=== PATIENT | female | born 1945 | race Caucasian/White ===

== ENCOUNTER 2018-11-07 10:59 | Outpatient (CLI) | payer MEDICARE, BC | END 2018-11-07 11:00 | disposition home or self-care (01) | LOC: BICMAMMO 10:59 | PROVIDERS: ATTEND Obstetrics & Gynecology | DX: Z12.31 Encounter for screening mammogram for malignant neoplasm of breast (principal) | CPT/HCPCS: 77063; 77067 ==

== ENCOUNTER 2019-08-31 08:40 | Outpatient (CLI) | payer MEDICARE, BC ==
--- NOTE | 2019-08-31 10:14 | ULT ---
THYROID ULTRASOUND: HISTORY: Hyperparathyroidism. FINDINGS: Thyroid isthmus: 0.4 cm. Right thyroid lobe: 4.7 x 1.4 x 1.4 cm. Left thyroid lobe: 4.0 x 1.3 x 1.2 cm. Thyroid nodules: 1.0 x 0.5 x 1.1 cm solid nodule in the upper pole of the right thyroid lobe. 0.4 x 0 .4 x 0.5 solid nodule in the upper pole of the right thyroid lobe. Cystic lesion in the midpole of the left thyroid lobe measuring 0.5 x 0.4 x 0.6 cm. Cystic lesion in the lower pole of the left thyro id lobe measuring 0.3 x 0.3 x 0.4 cm. IMPRESSION: Solid nodules in the right thyroid lobe. TIRADS calculator score TR3. Followup imaging in one year. Transcribed Date/Time: 08/31/2019 10:25 AM
--- NOTE | 2019-08-31 11:20 | BD ---
BONE DENSITOMETRY USING DEXA: Date: 08/31/19 HISTORY: Osteoporosis. FINDINGS: BMD (gm/cm2) RIGHT HIP: Neck 0.600 T-Score: -2.2 Z-Score: -0.2 Total: 0.960 T-Score: -0.7 Z-Score: 1.1 LEFT HIP: Neck 0.550 T-Score: -2.7 Z-Score: -0.6 Total: 0.869 T-Score: -0.6 Z-Score: 1.2 IMPRESSION: Osteoporosis. POS: [facility]
== END 2019-08-31 08:41 | disposition home or self-care (01) ==
LOC: BICMAMMO 08:40
PROVIDERS: ATTEND Neurological Surgery
DX: M81.0 Age-related osteoporosis without current pathological fracture (principal); E21.3 Hyperparathyroidism, unspecified; E04.2 Nontoxic multinodular goiter
CPT/HCPCS: 76536; 77080

== ENCOUNTER 2022-11-22 12:39 | Emergency (ER) | payer MEDICARE, BC ==
[2022-11-22 13:10] LABS: #Lymphocytes 0.7 thou/uL (1.20-3.40); #Monocytes 0.1 thou/uL (0.11-0.59); #Neutrophils 5.2 thou/uL (1.40-6.50); %Eosinophils 0.2 % (0.0-10.0); %Lymphocytes 11.9 % (21.0-51.0); %Monocytes 1.6 % (0.0-10.0); %Neutrophils 86.3 % (42.0-75.0); Hemoglobin 10.2 g/dL (12.0-16.0); Mean Corpuscular Hemoglobin 22.7 pg (27.0-31.0); Mean Corpuscular Volume 75.8 fl (78.0-98.0); Platelet Count 155 10x3/uL (130-400); RBC Distribution Width 16.2 % (11.5-14.5); White Blood Cell (WBC) Count 6.1 10x3/uL (4.8-10.8)
[2022-11-22] MEDS ORDERED: Meclizine HCl 25 MG TAB ONE (13:26)
[2022-11-22] MEDS ORDERED: Aspirin 325 MG TAB ONE (13:26)
[2022-11-22 13:30] LABS: ALT (SGPT) 31 U/L (8-55); AST (SGOT) 27 U/L (5-34); Albumin 4.1 g/dL (3.4-4.8); Alkaline Phosphatase 44 U/L (40-110); Anion Gap 19 mmol/L (10-20); BUN (Urea Nitrogen) 10 mg/dL (9.8-20.1); Bilirubin, Total 0.4 mg/dL (0.2-1.2); Calc. Creatinine Clearance 0 mL/min (70-130); Calcium 9.6 mg/dL (7.8-10.44); Carbon Dioxide 20 mmol/L (23-31); Chloride 107 mmol/L (98-107); Estimated GFR 78; Globulin 2.5 g/dL (2.4-3.5); Glucose 190 mg/dL (83-110); Potassium 3.7 mmol/L (3.5-5.1); Protein, Total 6.6 g/dL (5.8-8.1); Sodium 142 mmol/L (136-145)
[2022-11-22 13:55] LABS: Hypochromia SLIGHT = 6-15 cells (100X) (0-5/hpf); MDiff Complete? YES; Microcytosis SLIGHT = 6-15 cells (100X) (0-5/hpf); Polychromasia SLIGHT = 2-3 cells (100X) (0-2/hpf)
== END 2022-11-22 14:00 | disposition home or self-care (01) ==
LOC: ERS 12:39
DX: R07.9 Chest pain, unspecified (principal); R42 Dizziness and giddiness
CPT/HCPCS: 36415; 71045; 80053; 84484; 85025; 93005

== ENCOUNTER 2022-12-26 18:02 | Inpatient (IN) | payer MEDICARE, BC ==
[2022-12-26] MEDS ORDERED: Cefepime 2 GM VIAL ONE (18:46)
[2022-12-26] MEDS ORDERED: Acetaminophen 650 MG Suppository ONE (18:46)
[2022-12-26 18:57] LABS: Actual Bicarbonate (HCO3a) 25.4 mEq/L (22-28); Analyzer IN Cardio ER; Base Excess (BEa) 1.6 mEq/L (-2.0 to +3.0); Carboxyhemoglobin (COHb) 0.7 gm% (0.0-3.0); Hemoglobin (Hb) 13.3 g/dL (12.0-16.0); O2 Tension (PaO2), arterial 65.4 mmHg (> 70.0); pH, Arterial 7.45 (7.35-7.45)
[2022-12-26 18:59] LABS: Calcium, Ionized (arterial) 1.63 mmol/L (1.12-1.30); Puncture Site RRA
[2022-12-26 19:33] LABS: Mean Corpuscular Hemoglobin 23.6 pg (27.0-31.0); Mean Corpuscular Volume 76.1 fl (78.0-98.0); Mean Platelet Volume 9.5 fL (7.4-10.4); Platelet Count 152 10x3/uL (130-400); RBC Distribution Width 17.5 % (11.5-14.5); Red Blood Cell (RBC) Count 5.52 mill/uL (4.20-5.40); White Blood Cell (WBC) Count 35.8 10x3/uL (4.8-10.8)
[2022-12-26 19:40] LABS: Bilirubin Negative (Negative); Blood, Urine Negative (Negative); Clarity Clear (Clear); Glucose, Urine (Dipstick) Normal (Negative); Ketone, Urine Negative (Negative); Leukocyte Negative Leu/uL (Negative); Nitrite Negative (Negative); Protein, Urine (Dipstick) Negative (Neg-Trace); Urobilinogen Normal mg/dL (Less than 2)
[2022-12-26 19:40] LABS: ALT (SGPT) 35 U/L (8-55); AST (SGOT) 30 U/L (5-34); Albumin 4.3 g/dL (3.4-4.8); Alkaline Phosphatase 63 U/L (40-110); Anion Gap 22 mmol/L (10-20); BUN (Urea Nitrogen) 20 mg/dL (9.8-20.1); Bilirubin, Total 0.4 mg/dL (0.2-1.2); Calc. Creatinine Clearance 0 mL/min (70-130); Carbon Dioxide 24 mmol/L (23-31); Chloride 97 mmol/L (98-107); Estimated GFR 50; Globulin 2.7 g/dL (2.4-3.5); Glucose 205 mg/dL (83-110); Potassium 3.6 mmol/L (3.5-5.1); Sodium 139 mmol/L (136-145)
[2022-12-26 19:41] LABS: SARS-CoV-2 NAA Rapid Test DETECTED (NotDetected)
[2022-12-26 19:50] LABS: Hypochromia SLIGHT = 6-15 cells (100X) (0-5/hpf); MDiff Complete? YES; Microcytosis SLIGHT = 6-15 cells (100X) (0-5/hpf); Stomatocytes SLIGHT = 2-5 cells (100X) (0-1/hpf); Tear Drops SLIGHT = 2-5 cells (100X) (0-1/hpf); Vacuoles SLIGHT
[2022-12-26 19:51] LABS: Calcium 13.4 mg/dL (7.8-10.44)
[2022-12-26 20:03] LABS: CKMB 0.9 ng/mL (0-6.6)
[2022-12-26] MEDS ORDERED: Dexamethasone 4 MG TAB ONE (20:07)
[2022-12-26] MEDS ORDERED: Dexamethasone 4 mg/ml Vial ONE (20:08)
[2022-12-26] MEDS ORDERED: Ondansetron ODT 4 MG TAB PO PRN (21:36)
[2022-12-26] MEDS ORDERED: Ondansetron PF 4 MG/2 ML Vial IVP PRN (21:36)
[2022-12-26] MEDS ORDERED: Acetaminophen 650 MG Suppository PR PRN ×2 (21:36)
[2022-12-26] MEDS ORDERED: Acetaminophen 325 MG TAB PO PRN (21:36)
[2022-12-26] MEDS ORDERED: Benzonatate 100 MG CAP PO PRN (21:36)
[2022-12-26] MEDS ORDERED: Dexamethasone 6 MG in Sodium Chloride 0.9% 50 ML IVPB SCH (21:45)
[2022-12-26 23:12] LABS: Lactic Acid 5.3 mmol/L (0.5-2.2)
[2022-12-27 01:23] VITALS: BMI 28.1
[2022-12-27] MEDS ORDERED: Piperacillin/Tazobactam 3.375 GM in Sodium Chloride 0.9% 100 ML IVPB SCH (02:00)
[2022-12-27] MEDS ORDERED: Sodium Chloride 0.9% 500 ML IV SCH (02:15)
[2022-12-27 02:29] LABS: Mean Corpuscular HGB CONC 30.3 g/dL (32.0-36.0); Mean Corpuscular Hemoglobin 23.4 pg (27.0-31.0); Mean Platelet Volume 8.6 fL (7.4-10.4); Platelet Count 133 10x3/uL (130-400); RBC Distribution Width 17.6 % (11.5-14.5); Red Blood Cell (RBC) Count 4.72 mill/uL (4.20-5.40); White Blood Cell (WBC) Count 32.5 10x3/uL (4.8-10.8)
[2022-12-27] MEDS ORDERED: Linezolid 600 MG in Premix Bag 1 BAG IVPB SCH (03:00)
[2022-12-27 03:07] LABS: Anion Gap 16 mmol/L (10-20); BUN (Urea Nitrogen) 20 mg/dL (9.8-20.1); Band 29 % (5-11); Calc. Creatinine Clearance 49 mL/min (70-130); Calcium 11.9 mg/dL (7.8-10.44); Carbon Dioxide 25 mmol/L (23-31); Chloride 105 mmol/L (98-107); Estimated GFR 53; Glucose 191 mg/dL (83-110); Hypochromia SLIGHT = 6-15 cells (100X) (0-5/hpf); MDiff Complete? YES; Macrocytosis SLIGHT = 6-15 cells (100X) (0-5/hpf); Neutrophil 71 % (42-75); Platelet Morphology Comment Appears Adequate; Potassium 4.2 mmol/L (3.5-5.1); Sodium 142 mmol/L (136-145)
[2022-12-27] MEDS: Sodium Chloride 0.9% 1,000 ML IV SCH ×4 (03:15→21:43)
[2022-12-27] MEDS: Piperacillin/Tazobactam 3.375 GM in Sodium Chloride 0.9% 100 ML IVPB SCH ×3 (06:25→21:42)
[2022-12-27 07:53] LABS: Lactic Acid 2.7 mmol/L (0.5-2.2)
[2022-12-27] MEDS ORDERED: FLU VACC QS2022-23(65YR UP)/PF 240 MCG/0.7 ML SYRINGE IM ONE (09:00)
[2022-12-27] MEDS ORDERED: Dexamethasone 6 MG in Sodium Chloride 0.9% 50 ML IVPB SCH (09:00)
[2022-12-27] MEDS ORDERED: Pantoprazole 40 MG VIAL IVP SCH (09:00)
[2022-12-27] MEDS ORDERED: Cholecalciferol (Vitamin D3) 400 UNITS TAB PO SCH (09:00)
[2022-12-27] MEDS: Ascorbic Acid 500 mg Chewable Tablet PO SCH (09:15)
[2022-12-27] MEDS: Aggrenox 200-25mg CAP PO SCH ×2 (09:16→21:43)
[2022-12-27] MEDS: Gabapentin 100 MG CAP PO SCH ×2 (09:16→21:42)
[2022-12-27] MEDS: Zinc Sulfate 220 MG CAP PO SCH (09:21)
[2022-12-27] MEDS ORDERED: Fioricet 325/50/40 mg Tablet PO PRN (17:40)
[2022-12-27] MEDS: HYDROcodone/Acetaminophen 5/325 mg Tablet PO PRN ×2 (18:13→22:21)
[2022-12-27] MEDS: Latanoprost 0.005% Ophth Soln 2.5 ml Bottle EA EYE SCH (21:41)
[2022-12-27] MEDS: Linezolid 600 MG TAB PO SCH (21:41)
[2022-12-28] MEDS: HYDROcodone/Acetaminophen 5/325 mg Tablet PO PRN ×3 (02:33→10:48)
[2022-12-28 05:12] LABS: #Lymphocytes 1.3 thou/uL (1.20-3.40); #Monocytes 0.5 thou/uL (0.11-0.59); #Neutrophils 8.4 thou/uL (1.40-6.50); %Basophils 0.1 % (0.0-1.0); %Eosinophils 0.2 % (0.0-10.0); %Lymphocytes 13.2 % (21.0-51.0); %Monocytes 4.4 % (0.0-10.0); %Neutrophils 82.2 % (42.0-75.0); Hemoglobin 8.4 g/dL (12.0-16.0); Mean Corpuscular HGB CONC 30.1 g/dL (32.0-36.0); Mean Corpuscular Hemoglobin 23.3 pg (27.0-31.0); Mean Corpuscular Volume 77.3 fl (78.0-98.0); Mean Platelet Volume 8.8 fL (7.4-10.4); Platelet Count 106 10x3/uL (130-400); RBC Distribution Width 16.9 % (11.5-14.5); Red Blood Cell (RBC) Count 3.59 mill/uL (4.20-5.40); White Blood Cell (WBC) Count 10.2 10x3/uL (4.8-10.8)
[2022-12-28] MEDS: Sodium Chloride 0.9% 1,000 ML IV SCH ×4 (05:22→22:27)
[2022-12-28] MEDS: Piperacillin/Tazobactam 3.375 GM in Sodium Chloride 0.9% 100 ML IVPB SCH ×3 (05:22→22:26)
[2022-12-28 05:27] LABS: Anion Gap 11 mmol/L (10-20); BUN (Urea Nitrogen) 22 mg/dL (9.8-20.1); Calc. Creatinine Clearance 51 mL/min (70-130); Calcium 10.2 mg/dL (7.8-10.44); Carbon Dioxide 25 mmol/L (23-31); Chloride 110 mmol/L (98-107); Estimated GFR 55; Glucose 152 mg/dL (83-110); Potassium 3.5 mmol/L (3.5-5.1); Sodium 142 mmol/L (136-145)
[2022-12-28] MEDS: Zinc Sulfate 220 MG CAP PO SCH (09:06)
[2022-12-28] MEDS: Gabapentin 100 MG CAP PO SCH ×2 (09:06→22:26)
[2022-12-28] MEDS: Vitamin E 400 UNITS CAP PO SCH (09:06)
[2022-12-28] MEDS: Ascorbic Acid 500 mg Chewable Tablet PO SCH (09:07)
[2022-12-28] MEDS: Linezolid 600 MG TAB PO SCH ×2 (09:07→22:26)
[2022-12-28] MEDS: Aggrenox 200-25mg CAP PO SCH ×2 (09:08→22:26)
[2022-12-28] MEDS: Latanoprost 0.005% Ophth Soln 2.5 ml Bottle EA EYE SCH ×2 (09:08→22:27)
[2022-12-28] MEDS: Dexamethasone 4 mg/ml Vial SLOW IVP SCH (09:08)
[2022-12-28] MEDS ORDERED: Magnevist 469MG/ML 20 ML VIAL ONE (09:47)
[2022-12-28] MEDS ORDERED: HYDROcodone/Acetaminophen 7.5/325 mg Tablet PO PRN (12:40)
[2022-12-28] MEDS ORDERED: Ketorolac Tromethamine 30 MG/ML VIAL IVP SCH (12:45)
[2022-12-28] MEDS: Ketorolac Tromethamine 30 MG/ML VIAL IVP SCH ×2 (18:02→22:26)
[2022-12-28] MEDS: HYDROcodone/Acetaminophen 7.5/325 mg Tablet PO PRN (20:14)
[2022-12-29] MEDS: HYDROcodone/Acetaminophen 7.5/325 mg Tablet PO PRN ×3 (01:49→13:11)
[2022-12-29] MEDS: Sodium Chloride 0.9% 1,000 ML IV SCH ×2 (03:05→11:27)
[2022-12-29 04:46] LABS: #Lymphocytes 1.2 thou/uL (1.20-3.40); #Monocytes 0.3 thou/uL (0.11-0.59); #Neutrophils 5.3 thou/uL (1.40-6.50); %Eosinophils 0.4 % (0.0-10.0); %Lymphocytes 17.4 % (21.0-51.0); %Monocytes 4.2 % (0.0-10.0); Hemoglobin 8.8 g/dL (12.0-16.0); Mean Corpuscular HGB CONC 30.7 g/dL (32.0-36.0); Mean Corpuscular Hemoglobin 23.6 pg (27.0-31.0); Mean Corpuscular Volume 76.9 fl (78.0-98.0); Mean Platelet Volume 8.3 fL (7.4-10.4); Platelet Count 121 10x3/uL (130-400); RBC Distribution Width 16.7 % (11.5-14.5); Red Blood Cell (RBC) Count 3.72 mill/uL (4.20-5.40); White Blood Cell (WBC) Count 6.8 10x3/uL (4.8-10.8)
[2022-12-29 05:10] LABS: Anion Gap 11 mmol/L (10-20); BUN (Urea Nitrogen) 19 mg/dL (9.8-20.1); Calc. Creatinine Clearance 61 mL/min (70-130); Calcium 9.9 mg/dL (7.8-10.44); Carbon Dioxide 23 mmol/L (23-31); Chloride 111 mmol/L (98-107); Estimated GFR 68; Glucose 106 mg/dL (83-110); Potassium 3.2 mmol/L (3.5-5.1); Sodium 142 mmol/L (136-145)
[2022-12-29] MEDS: Ketorolac Tromethamine 30 MG/ML VIAL IVP SCH ×3 (05:54→18:03)
[2022-12-29] MEDS: Piperacillin/Tazobactam 3.375 GM in Sodium Chloride 0.9% 100 ML IVPB SCH (05:55)
[2022-12-29] MEDS: Vitamin E 400 UNITS CAP PO SCH (09:27)
[2022-12-29] MEDS: Aggrenox 200-25mg CAP PO SCH ×2 (09:27→20:59)
[2022-12-29] MEDS: Ascorbic Acid 500 mg Chewable Tablet PO SCH (09:28)
[2022-12-29] MEDS: Linezolid 600 MG TAB PO SCH ×2 (09:30→20:57)
[2022-12-29] MEDS: Zinc Sulfate 220 MG CAP PO SCH (09:30)
[2022-12-29] MEDS: Gabapentin 100 MG CAP PO SCH (09:30)
[2022-12-29] MEDS: Dexamethasone 4 mg/ml Vial SLOW IVP SCH (09:31)
[2022-12-29] MEDS: Latanoprost 0.005% Ophth Soln 2.5 ml Bottle EA EYE SCH ×2 (09:39→20:59)
[2022-12-29] MEDS ORDERED: Acetaminophen/Codeine 30-300mg Tablet PO PRN (10:06)
[2022-12-29] MEDS ORDERED: Calcium Carbonate 500 MG ChewTAB PO PRN (10:06)
[2022-12-29] MEDS ORDERED: predniSONE 5 MG TAB PO SCH (10:45)
[2022-12-29] MEDS ORDERED: Polyethylene Glycol 3350 17 GM Packet PO SCH (10:45)
[2022-12-29] MEDS: Morphine 4 MG/ML VIAL SLOW IVP PRN ×3 (11:23→20:58)
[2022-12-29] MEDS: Gabapentin 300 MG CAP PO SCH (20:58)
[2022-12-30] MEDS: Ketorolac Tromethamine 30 MG/ML VIAL IVP SCH ×5 (00:49→22:58)
[2022-12-30 04:59] LABS: Anisocytosis SLIGHT = 6-15 cells (100X) (0-5/hpf); Eosinophils 1 % (0-10); Hemoglobin 9.3 g/dL (12.0-16.0); Hypochromia SLIGHT = 6-15 cells (100X) (0-5/hpf); Lymphocytes 14 % (21-51); MDiff Complete? YES; Mean Corpuscular HGB CONC 30.5 g/dL (32.0-36.0); Mean Corpuscular Hemoglobin 23.2 pg (27.0-31.0); Mean Corpuscular Volume 76.1 fl (78.0-98.0); Mean Platelet Volume 8.4 fL (7.4-10.4); Microcytosis SLIGHT = 6-15 cells (100X) (0-5/hpf); Monocytes 6 % (0-10); Neutrophil 78 % (42-75); Platelet Count 126 10x3/uL (130-400); Platelet Morphology Comment Appears Decreased; Polychromasia SLIGHT = 2-3 cells (100X) (0-2/hpf); RBC Distribution Width 16.3 % (11.5-14.5); Reactive Lymphocytes 1 % (0-10); Red Blood Cell (RBC) Count 4.03 mill/uL (4.20-5.40); Target Cells SLIGHT = 2-5 cells (100X) (0-1/hpf); Tear Drops SLIGHT = 2-5 cells (100X) (0-1/hpf); White Blood Cell (WBC) Count 5.8 10x3/uL (4.8-10.8)
[2022-12-30] MEDS: Morphine 4 MG/ML VIAL SLOW IVP PRN ×3 (08:10→17:51)
[2022-12-30] MEDS: Polyethylene Glycol 3350 17 GM Packet PO SCH (08:11)
[2022-12-30] MEDS: Cholecalciferol 1,000 UNITS (25 MCG) TAB PO SCH (08:13)
[2022-12-30] MEDS: Linezolid 600 MG TAB PO SCH ×2 (08:13→20:07)
[2022-12-30] MEDS: Zinc Sulfate 220 MG CAP PO SCH (08:13)
[2022-12-30] MEDS: predniSONE 5 MG TAB PO SCH (08:13)
[2022-12-30] MEDS: Aggrenox 200-25mg CAP PO SCH ×2 (08:14→20:08)
[2022-12-30] MEDS: Gabapentin 300 MG CAP PO SCH ×2 (08:14→20:07)
[2022-12-30] MEDS: Ascorbic Acid 500 mg Chewable Tablet PO SCH (08:14)
[2022-12-30] MEDS: Latanoprost 0.005% Ophth Soln 2.5 ml Bottle EA EYE SCH ×2 (08:15→20:08)
[2022-12-30] MEDS: HYDROcodone/Acetaminophen 7.5/325 mg Tablet PO PRN ×2 (11:07→17:53)
[2022-12-30] MEDS: Vitamin E 400 UNITS CAP PO SCH (11:07)
[2022-12-30] MEDS: Sodium Chloride 0.9% 1,000 ML IV SCH (13:15)
[2022-12-30] MEDS: HYDROcodone/Acetaminophen 10/325 mg Tablet PO PRN (22:58)
[2022-12-31] MEDS: Morphine 4 MG/ML VIAL SLOW IVP PRN ×5 (01:17→23:25)
[2022-12-31] MEDS: Ketorolac Tromethamine 30 MG/ML VIAL IVP SCH ×4 (06:06→23:25)
[2022-12-31] MEDS: HYDROcodone/Acetaminophen 10/325 mg Tablet PO PRN ×2 (09:16→15:34)
[2022-12-31] MEDS: Zinc Sulfate 220 MG CAP PO SCH (09:17)
[2022-12-31] MEDS: Gabapentin 300 MG CAP PO SCH ×3 (09:17→20:24)
[2022-12-31] MEDS: Vitamin E 400 UNITS CAP PO SCH (09:17)
[2022-12-31] MEDS: predniSONE 5 MG TAB PO SCH (09:17)
[2022-12-31] MEDS: Polyethylene Glycol 3350 17 GM Packet PO SCH (09:17)
[2022-12-31] MEDS: Cholecalciferol 1,000 UNITS (25 MCG) TAB PO SCH (09:19)
[2022-12-31] MEDS: Linezolid 600 MG TAB PO SCH ×2 (09:19→20:24)
[2022-12-31] MEDS: Ascorbic Acid 500 mg Chewable Tablet PO SCH (09:19)
[2022-12-31] MEDS: Latanoprost 0.005% Ophth Soln 2.5 ml Bottle EA EYE SCH ×2 (09:21→20:24)
[2022-12-31] MEDS: Sodium Chloride 0.9% 1,000 ML IV SCH (09:21)
[2022-12-31] MEDS: Aggrenox 200-25mg CAP PO SCH ×2 (11:31→20:24)
[2022-12-31] MEDS: tiZANidine HCl 4 MG TAB PO PRN (15:39)
[2023-01-01] MEDS: Morphine 4 MG/ML VIAL SLOW IVP PRN ×5 (03:15→23:31)
[2023-01-01] MEDS: Ketorolac Tromethamine 30 MG/ML VIAL IVP SCH ×4 (05:50→23:31)
[2023-01-01] MEDS: Zinc Sulfate 220 MG CAP PO SCH (09:10)
[2023-01-01] MEDS: Gabapentin 300 MG CAP PO SCH ×3 (09:10→19:27)
[2023-01-01] MEDS: predniSONE 5 MG TAB PO SCH (09:11)
[2023-01-01] MEDS: Linezolid 600 MG TAB PO SCH ×2 (09:19→19:27)
[2023-01-01] MEDS: tiZANidine HCl 4 MG TAB PO PRN ×2 (09:21→19:27)
[2023-01-01] MEDS: Aggrenox 200-25mg CAP PO SCH ×2 (09:21→19:27)
[2023-01-01] MEDS: Vitamin E 400 UNITS CAP PO SCH (09:22)
[2023-01-01] MEDS: Cholecalciferol 1,000 UNITS (25 MCG) TAB PO SCH (09:22)
[2023-01-01] MEDS: Ascorbic Acid 500 mg Chewable Tablet PO SCH (09:23)
[2023-01-01] MEDS ORDERED: hydrALAZINE 25 MG TAB PO PRN (09:39)
[2023-01-01] MEDS: Polyethylene Glycol 3350 17 GM Packet PO SCH (10:29)
[2023-01-01] MEDS: Latanoprost 0.005% Ophth Soln 2.5 ml Bottle EA EYE SCH ×2 (13:00→19:27)
[2023-01-01] MEDS: HYDROcodone/Acetaminophen 10/325 mg Tablet PO PRN (21:34)
[2023-01-02 05:21] LABS: Bacteria/HPF None Seen HPF (None Seen); Bilirubin Negative (Negative); Blood, Urine Negative (Negative); CAUTI Indications for Culture Dysuria,urgency,freq; Clarity Clear (Clear); Glucose, Urine (Dipstick) Normal (Negative); Ketone, Urine Negative (Negative); Leukocyte Negative Leu/uL (Negative); Nitrite Negative (Negative); Protein, Urine (Dipstick) Negative (Neg-Trace); RBC/HPF 0-3 HPF (0-3); Squamous Epithelial None Seen HPF (0-3); Urobilinogen Normal mg/dL (Less than 2); WBC/HPF 0-3 HPF (0-3); Yeast-Budding 1+ HPF (None Seen); pH, Urine 7.5 (5.0-9.0)
[2023-01-02] MEDS: HYDROcodone/Acetaminophen 10/325 mg Tablet PO PRN ×3 (05:24→21:00)
[2023-01-02] MEDS: Ketorolac Tromethamine 30 MG/ML VIAL IVP SCH ×3 (05:24→17:50)
[2023-01-02 05:25] LABS: Urine Culture Reflex No No
[2023-01-02 05:26] LABS: Anion Gap 15 mmol/L (10-20); BUN (Urea Nitrogen) 21 mg/dL (9.8-20.1); Calc. Creatinine Clearance 69 mL/min (70-130); Calcium 9.9 mg/dL (7.8-10.44); Carbon Dioxide 25 mmol/L (23-31); Chloride 106 mmol/L (98-107); Estimated GFR 80; Glucose 109 mg/dL (83-110); Potassium 3.5 mmol/L (3.5-5.1); Sodium 142 mmol/L (136-145)
[2023-01-02] MEDS: tiZANidine HCl 4 MG TAB PO PRN ×3 (08:15→23:21)
[2023-01-02] MEDS: Ascorbic Acid 500 mg Chewable Tablet PO SCH (08:16)
[2023-01-02] MEDS: Gabapentin 300 MG CAP PO SCH ×3 (08:17→21:00)
[2023-01-02] MEDS: Cholecalciferol 1,000 UNITS (25 MCG) TAB PO SCH (08:17)
[2023-01-02] MEDS: Linezolid 600 MG TAB PO SCH ×2 (08:19→21:00)
[2023-01-02] MEDS: Polyethylene Glycol 3350 17 GM Packet PO SCH (08:21)
[2023-01-02] MEDS: predniSONE 5 MG TAB PO SCH (08:21)
[2023-01-02] MEDS: Latanoprost 0.005% Ophth Soln 2.5 ml Bottle EA EYE SCH ×2 (08:22→21:03)
[2023-01-02] MEDS: Vitamin E 400 UNITS CAP PO SCH (08:22)
[2023-01-02] MEDS: Zinc Sulfate 220 MG CAP PO SCH (08:22)
[2023-01-02] MEDS: Aggrenox 200-25mg CAP PO SCH ×2 (08:25→21:00)
[2023-01-02] MEDS: Amlodipine 5 MG TAB PO SCH (11:40)
[2023-01-03] MEDS: HYDROcodone/Acetaminophen 10/325 mg Tablet PO PRN ×4 (04:05→22:41)
[2023-01-03] MEDS: tiZANidine HCl 4 MG TAB PO PRN ×3 (04:05→22:43)
[2023-01-03] MEDS: Morphine 4 MG/ML VIAL SLOW IVP PRN ×2 (05:05→11:59)
[2023-01-03] MEDS: Gabapentin 300 MG CAP PO SCH ×3 (09:43→20:29)
[2023-01-03] MEDS: Polyethylene Glycol 3350 17 GM Packet PO SCH (09:43)
[2023-01-03] MEDS: Vitamin E 400 UNITS CAP PO SCH (09:44)
[2023-01-03] MEDS: predniSONE 5 MG TAB PO SCH (09:45)
[2023-01-03] MEDS: Cholecalciferol 1,000 UNITS (25 MCG) TAB PO SCH (09:45)
[2023-01-03] MEDS: Ascorbic Acid 500 mg Chewable Tablet PO SCH (09:45)
[2023-01-03] MEDS: Amlodipine 5 MG TAB PO SCH (09:45)
[2023-01-03] MEDS: Zinc Sulfate 220 MG CAP PO SCH (09:45)
[2023-01-03] MEDS: Linezolid 600 MG TAB PO SCH (09:45)
[2023-01-03] MEDS: Latanoprost 0.005% Ophth Soln 2.5 ml Bottle EA EYE SCH ×2 (09:47→20:29)
[2023-01-03] MEDS: Aggrenox 200-25mg CAP PO SCH ×2 (09:48→20:29)
[2023-01-03] MEDS ORDERED: fentaNYL 50 mcg/hour Patch TD SCH (12:00)
[2023-01-03] MEDS ORDERED: predniSONE 5 MG TAB PO SCH (16:22)
[2023-01-04] MEDS: Morphine 4 MG/ML VIAL SLOW IVP PRN ×2 (00:47→10:56)
[2023-01-04] MEDS: Gabapentin 300 MG CAP PO SCH (08:31)
[2023-01-04] MEDS: HYDROcodone/Acetaminophen 10/325 mg Tablet PO PRN (08:31)
[2023-01-04] MEDS: Vitamin E 400 UNITS CAP PO SCH (08:32)
[2023-01-04] MEDS: Amlodipine 5 MG TAB PO SCH (08:32)
[2023-01-04] MEDS: Zinc Sulfate 220 MG CAP PO SCH (08:32)
[2023-01-04] MEDS: Cholecalciferol 1,000 UNITS (25 MCG) TAB PO SCH (08:32)
[2023-01-04] MEDS: Ascorbic Acid 500 mg Chewable Tablet PO SCH (08:32)
[2023-01-04] MEDS: Aggrenox 200-25mg CAP PO SCH (08:33)
[2023-01-04] MEDS: Polyethylene Glycol 3350 17 GM Packet PO SCH (08:33)
[2023-01-04] MEDS: Latanoprost 0.005% Ophth Soln 2.5 ml Bottle EA EYE SCH (08:33)
[2023-01-04 12:07] VITALS: BP 160/81; TEMP 99
== END 2023-01-04 13:55 | DRG 871 ==
LOC: ERS 18:02 → 2NO 20:26 → T4-A 01-02 13:13
PROVIDERS: ADMIT Student in an Organized Health Care Education/Training Program; ATTEND Family Medicine
PROC: 3E03329 Introduction of Other Anti-infective into Peripheral Vein, Percutaneous Approach (ICD-10-PCS; principal; 2022-12-26)
PROC: 8E0ZXY6 Isolation (ICD-10-PCS; 2022-12-26)
DX: A41.89 Other specified sepsis (principal); G93.41 Metabolic encephalopathy; U07.1 COVID-19; J96.01 Acute respiratory failure with hypoxia; N17.9 Acute kidney failure, unspecified; E87.20 Acidosis, unspecified; M31.5 Giant cell arteritis with polymyalgia rheumatica; I25.10 Atherosclerotic heart disease of native coronary artery without angina pectoris; R65.20 Severe sepsis without septic shock; E83.52 Hypercalcemia; E87.5 Hyperkalemia; M54.16 Radiculopathy, lumbar region; M46.1 Sacroiliitis, not elsewhere classified; Z88.8 Allergy status to other drugs, medicaments and biological substances; Z88.1 Allergy status to other antibiotic agents; Z79.899 Other long term (current) drug therapy; Z79.82 Long term (current) use of aspirin; Z90.49 Acquired absence of other specified parts of digestive tract; Z90.710 Acquired absence of both cervix and uterus
CPT/HCPCS: 36415; 36416; 36600; 51701; 70450; 71045; 72158; 80048; 81001; 81003; 82553; 82805; 83605; 83880; 83970; 85025; 85379; 86140; 87040; 87086; 93005; 96365; 96367; 96375; A9579; C9113; J0692; J1100; J1650; J1885; J1956; J2020; J2270; J2543; J3490; J7050; J7512; J8540

== ENCOUNTER 2023-01-24 08:29 | Emergency (ER) | payer MEDICARE, BC ==
[2023-01-24] MEDS ORDERED: Nitroglycerin 0.4 MG TAB 1 EACH ONE (09:14)
[2023-01-24] MEDS ORDERED: Aspirin Chewable 81 MG TAB ONE (09:14)
[2023-01-24 09:47] LABS: Hemoglobin 13.1 g/dL (12.0-16.0); Mean Corpuscular HGB CONC 30.9 g/dL (32.0-36.0); Mean Corpuscular Hemoglobin 23.6 pg (27.0-31.0); Mean Corpuscular Volume 76.2 fl (78.0-98.0); Mean Platelet Volume 8.6 fL (7.4-10.4); PTT 23.7 sec (22.9-36.1); Platelet Count 179 10x3/uL (130-400); Prothrombin Time 13.3 sec (12.0-14.7); RBC Distribution Width 18.4 % (11.5-14.5); Red Blood Cell (RBC) Count 5.55 mill/uL (4.20-5.40)
[2023-01-24 09:48] LABS: D-Dimer Test 0.57 *mcg/mL (0.27-0.43)
[2023-01-24 09:55] LABS: ALT (SGPT) 29 U/L (8-55); AST (SGOT) 24 U/L (5-34); Albumin 4.4 g/dL (3.4-4.8); Alkaline Phosphatase 40 U/L (40-110); Anion Gap 17 mmol/L (10-20); BUN (Urea Nitrogen) 18 mg/dL (9.8-20.1); Bilirubin, Total 0.6 mg/dL (0.2-1.2); Calc. Creatinine Clearance 0 mL/min (70-130); Calcium 10.5 mg/dL (7.8-10.44); Carbon Dioxide 22 mmol/L (23-31); Chloride 106 mmol/L (98-107); Estimated GFR 54; Globulin 2.7 g/dL (2.4-3.5); Glucose 120 mg/dL (83-110); Potassium 3.9 mmol/L (3.5-5.1); Protein, Total 7.1 g/dL (5.8-8.1); Sodium 141 mmol/L (136-145)
[2023-01-24 10:00] LABS: Anisocytosis SLIGHT = 6-15 cells (100X) (0-5/hpf); Band 7 % (5-11); Eosinophils 1 % (0-10); Hypochromia SLIGHT = 6-15 cells (100X) (0-5/hpf); Lymphocytes 8 % (21-51); MDiff Complete? YES; Microcytosis SLIGHT = 6-15 cells (100X) (0-5/hpf); Monocytes 1 % (0-10); Neutrophil 83 % (42-75); Ovalocytes SLIGHT = 2-5 cells (100X) (0-1/hpf); Platelet Morphology Comment Appears Adequate; Polychromasia SLIGHT = 2-3 cells (100X) (0-2/hpf); Tear Drops SLIGHT = 2-5 cells (100X) (0-1/hpf)
[2023-01-24] MEDS ORDERED: Iopamidol 370 76% 100 ML VIAL ONE (10:31)
[2023-01-24] MEDS ORDERED: Linezolid 600 MG in Premix Bag 1 BAG IVPB SCH (11:45)
[2023-01-24] MEDS ORDERED: Nitroglycerin 2% Ointment 1 INCH/1 GM Packet ONE (11:57)
[2023-01-24] MEDS ORDERED: Cefepime 2 GM VIAL ONE (12:03)
[2023-01-24] MEDS ORDERED: Morphine 4 MG/ML VIAL ONE (12:21)
[2023-01-24 14:10] LABS: Lactic Acid 2.9 mmol/L (0.5-2.2)
== END 2023-01-24 15:54 ==
LOC: ERS 08:29
DX: A41.9 Sepsis, unspecified organism (principal); R07.9 Chest pain, unspecified; R00.0 Tachycardia, unspecified; D72.829 Elevated white blood cell count, unspecified; I25.10 Atherosclerotic heart disease of native coronary artery without angina pectoris
CPT/HCPCS: 71045; 71275; 83605; 83880; 84484 ×2; 85379; 85384; 85610; 85730; 87040; 87149 ×2; 93005; 94760; J2020; 36415; 80053; 84443; 85025; 96365; 96366; 96367; 96375; J0692; J2270; Q9967

== ENCOUNTER 2023-02-12 12:32 | Emergency (ER) | payer MEDICARE, BC ==
[2023-02-12 14:42] LABS: #Lymphocytes 1.3 thou/uL (1.20-3.40); #Monocytes 0.7 thou/uL (0.11-0.59); #Neutrophils 13.2 thou/uL (1.40-6.50); %Basophils 0.2 % (0.0-1.0); %Eosinophils 0.1 % (0.0-10.0); %Lymphocytes 8.4 % (21.0-51.0); %Monocytes 4.4 % (0.0-10.0); Hemoglobin 11.5 g/dL (12.0-16.0); Hypochromia SLIGHT = 6-15 cells (100X) (0-5/hpf); MDiff Complete? YES; Mean Corpuscular HGB CONC 29.7 g/dL (32.0-36.0); Mean Corpuscular Hemoglobin 24.2 pg (27.0-31.0); Mean Corpuscular Volume 81.4 fl (78.0-98.0); Mean Platelet Volume 8.8 fL (7.4-10.4); Ovalocytes SLIGHT = 2-5 cells (100X) (0-1/hpf); Platelet Count 187 10x3/uL (130-400); Platelet Morphology Comment Appears Adequate; Polychromasia SLIGHT = 2-3 cells (100X) (0-2/hpf); RBC Distribution Width 17.8 % (11.5-14.5); Red Blood Cell (RBC) Count 4.77 mill/uL (4.20-5.40); White Blood Cell (WBC) Count 15.2 10x3/uL (4.8-10.8)
[2023-02-12 15:20] LABS: AST (SGOT) 28 U/L (5-34); Anion Gap 15 mmol/L (10-20); Bilirubin, Total 0.4 mg/dL (0.2-1.2); Calcium 8.9 mg/dL (7.8-10.44); Carbon Dioxide 17 mmol/L (23-31); Chloride 104 mmol/L (98-107); Potassium 4.1 mmol/L (3.5-5.1); Protein, Total 6.5 g/dL (5.8-8.1); Sodium 132 mmol/L (136-145)
[2023-02-12 15:39] LABS: Albumin 1.1 g/dL (3.4-4.8); BUN (Urea Nitrogen) 22 mg/dL (9.8-20.1); Calc. Creatinine Clearance 0 mL/min (70-130); Estimated GFR 64; Globulin 5.4 g/dL (2.4-3.5); Glucose 70 mg/dL (83-110)
[2023-02-12 16:06] LABS: Alkaline Phosphatase 81 U/L (40-110)
[2023-02-12 16:09] LABS: ALT (SGPT) 21 U/L (8-55); Magnesium 2.9 mg/dL (1.6-2.6)
[2023-02-12 16:10] LABS: Lipase 14 U/L (8-78)
== END 2023-02-12 16:18 | disposition home or self-care (01) ==
LOC: ERS 12:32
DX: E86.0 Dehydration (principal); B96.89 Other specified bacterial agents as the cause of diseases classified elsewhere; R11.10 Vomiting, unspecified; D72.829 Elevated white blood cell count, unspecified; E78.5 Hyperlipidemia, unspecified; K21.9 Gastro-esophageal reflux disease without esophagitis
CPT/HCPCS: 36415; 80053; 83605; 83690; 83735; 84484; 85025; 99284